=== PATIENT | female | born 1975 | race Caucasian/White ===

== ENCOUNTER 2016-10-03 14:33 | Emergency (ER) | payer SELFPAY ==
[~2016-10-03] VITALS: Ht 165.1 cm; Wt 81.5 kg
[~2016-10-03 14:33] MED LIST: BACT800T5 PO; PERC5TAB12 PO
[2016-10-03 14:34] VITALS: BP 134/84; PULSE 131; RESP 19; TEMP 98.2; O2SAT 98
--- NOTE | 2016-10-03 15:08 | PD ---
HPI Chief Complaint: Fall Time Seen by Provider: 15:07 Travel History International Travel<30 days: No Contact w/Intl Traveler<30days: No Traveled to known affect area: No History of Present Illness HPI 41-year-old female presents to the emergency Department with complaint of coccyx pain and low back pain after slipping and falling in the bathtub yesterday and landing on her butt. She denies hitting her head or loss of consciousness. Denies neck pain. Pain radiates down right leg at times. Denies encopresis, incontinence, saddle anesthesias. Denies change in urine or stool. Denies hematuria or hematochezia. Denies paresthesias, loss of sensation, decreased range of motion, decreased strength to bilateral lower extremities. Pain is worse with palpation, sitting, walking. Patient is ambulatory. Denies fever, chills, nausea, vomiting. Denies IV drug use. Denies cancer. Has tried taking ibuprofen and Tylenol with minimal relief of symptoms. Allergies to penicillin. Denies significant past medical history. Denies anticoagulants. No other modifying factors or associated signs and symptoms. [facility] Past Medical History Medical History: Denies Significant Hx : 4 Para: 4 Miscarriage: 0 : 0 Past Surgical History Cholecystectomy: Yes Social History Alcohol Use: No Tobacco Use: Yes (1 PACK A DAY FOR 20 YEARS) Substance Use: No Allergies-Medications (Allergen,Severity, Reaction): Coded Allergies: Penicillin (Verified Allergy, Severe, SOB, 10/03/16) Reported Meds & Prescriptions Reported Meds & Active Scripts Active Robaxin (Methocarbamol) 500 Mg Tab 500 Mg PO QID PRN Ibuprofen 800 Mg Tab 800 Mg PO Q6HR PRN Review of Systems Except as stated in HPI: all other systems reviewed are Neg Physical Exam Narrative GENERAL: Well-nourished, well-developed female patient, in no acute distress SKIN: Warm and dry. HEAD: Atraumatic. Normocephalic. EYES: Pupils equal and round. No scleral icterus. No injection or drainage. ENT: Mucosa pink and moist. Airway patent. NECK: Trachea midline. CARDIOVASCULAR: Regular rate. RESPIRATORY: No accessory muscle use. GASTROINTESTINAL: Rounded. MUSCULOSKELETAL: Bilateral lower extremities supple and non-tense with 2+ pedal pulses and sensory intact; with full range of motion and 5/5 strength. Active dorsiflexion and extension of bilateral feet. Ambulatory with normal gait. Sitting up in bed at 90. No obvious deformities. No clubbing. No cyanosis. No edema. BACK: Midline point tenderness on palpation of the coccyx area; without ecchymosis. Midline point tenderness on palpation of the lumbar. No midline point tenderness on palpation of the thoracic spine. Tenderness on palpation of left iliosacral area. No obvious deformities. NEUROLOGICAL: Awake and alert. Oriented 3. No obvious cranial nerve deficits. Motor grossly within normal limits. Normal speech. Moves all extremities. 5/5 strength to all extremities. Sensory intact. PSYCHIATRIC: Appropriate mood and affect; insight and judgment normal. Data Data Last Documented VS Vital Signs Date Time Temp Pulse Resp B/P Pulse Ox O2 Delivery O2 Flow Rate FiO2 10/03/16 14:34 98.2 131 19 134/84 98 Orders Ketorolac Inj (Toradol Inj) (10/03/16 15:15) Orphenadrine Inj (Norflex Inj) (10/03/16 15:15) Sacrum And Coccyx (10/03/16 ) Spine, Lumbar - Ltd (Ap & Lat) (10/03/16 15:13) [facility] Medical Decision Making Medical Screen Exam Complete: Yes Emergency Medical Condition: Yes Medical Record Reviewed: Yes Differential Diagnosis Coccyx fracture, low back strain, contusion, fall Narrative Course 41-year-old female with low back injury after a mechanical slip and fall yesterday. Denies hitting her head or loss of consciousness. Denies neck pain. Heart rate recheck on physical exam is approximately 90 bpm. Toradol and Norflex administered in the ER. Coccyx, sacrum, lumbar spine x-ray ordered. 1604: Coccyx and sacrum, and lumbar x-ray with no acute findings. Ibuprofen or Robaxin prescribed for home. Patient is medically cleared and stable for discharge. Discussed reasons to return to the emergency department. Instructed patient to follow up with primary care provider. Patient agrees with treatment plan. The patients vital signs are stable and the patient is stable for outpatient follow-up and treatment. Patient discharged home, stable and in no acute distress. Diagnosis Primary Impression: Fall Qualified Code: W19.XXXA - Fall, initial encounter Additional Impressions: Injury of coccyx Qualified Code: S39.92XA - Injury of coccyx, initial encounter Injury of low back Qualified Code: S39.92XA - Injury of low back, initial encounter Referrals: Primary Care Physician Patient Instructions: Acute Low Back Pain (ED), Coccyx Injury (ED), Fall Prevention (ED), General Instructions, Low Back Strain (ED), Lower Back Exercises (ED) Departure Forms: Tests/Procedures, Work Release Enter return to work date: Oct 06, 2016 Additional Instructions: Tylenol or ibuprofen as directed and as needed for pain Robaxin as prescribed and as needed for muscle spasms Heating pad and/or ice to affected area to reduce pain Avoid aggravating activities; increase activity as tolerated Follow-up with primary care provider Return to emergency department immediately with worsening of symptoms Med/Other Pt SpecificInfo: Prescription(s) given Scripts Methocarbamol (Robaxin)500 Mg [id number] Mg PO QID PRN (MUSCLE SPASM) #30 TAB Ref 0 Prov:Izabela Anders 10/03/16 Ibuprofen 800 Mg [id number] Mg PO Q6HR PRN (PAIN) #30 TAB Ref 0 Prov:Izabela Anders 10/03/16 Disposition: 01 DISCHARGE HOME Condition: Stable Izabela Anders Oct 03, 2016 15:07
[2016-10-03] MEDS ORDERED: KETOROLAC TROMETHAMINE 60 MG/2 ML (IM) VIAL IM ONE (15:15)
[2016-10-03] MEDS ORDERED: ORPHENADRINE INJ 60 MG/2 ML AMP IM ONE (15:15)
[2016-10-03] MEDS ORDERED: IBUP800T23 PO (15:17)
[2016-10-03] MEDS ORDERED: ROBA500T PO (15:17)
--- NOTE | 2016-10-03 15:34 | RADRPT ---
EXAM DATE/TIME: 10/03/2016 15:21 [facility] COMPARISON: No previous studies available for comparison. INDICATIONS : Coccyx pain after fall in bathtub. MEDICAL HISTORY : None. SURGICAL HISTORY : None. ENCOUNTER: Initial ACUITY: 2 days PAIN SCORE: 7/10 LOCATION: Bilateral coccyx. FINDINGS: Two-view examination of the sacrum and coccyx demonstrates no evidence of fracture or malalignment. The sacral ala and foramina appear symmetric and intact. The coccyx appears unremarkable. The preve rtebral soft tissues are within normal limits. CONCLUSION: Unremarkable examination of the sacrum and coccyx. Campos Burton MD on October 03, 2016 at 15:32 Board Certified Radiologist. This report was verified electronically.
--- NOTE | 2016-10-03 15:49 | RADRPT ---
EXAM DATE/TIME: 10/03/2016 15:28 [facility] COMPARISON: No previous studies available for comparison. INDICATIONS : Lower back pain after fall in bathtub. MEDICAL HISTORY : None. SURGICAL HISTORY : None. ENCOUNTER: Initial ACUITY: 2 days PAIN SCORE: 7/10 LOCATION: Bilateral lower back. FINDINGS: Two view examination was performed. There are five non-rib bearing vertebral bodies. The vertebral bodies are in normal alignment without evidence of subluxation or scoliosis. Degenerative disc diseas e with marked narrowing or vascular side of L4-5 disc space and mild narrowing of L5-S1 as well as L3 -4. Anterior marginal spurring L4-5 noted. Probable facet arthritic changes L4-S1.. The pedicles are intact. Bony mineralization is normal. No fracture is identified. CONCLUSION: Degenerative disc disease and degenerative findings as described. No acute bony injury. Campos Burton MD on October 03, 2016 at 15:47 Board Certified Radiologist. This report was verified electronically.
== END 2016-10-03 16:22 | disposition home or self-care (01) ==
LOC: NEPB 14:33
DX: S39.92XA Unspecified injury of lower back, initial encounter (principal); F17.210 Nicotine dependence, cigarettes, uncomplicated; W18.2XXA Fall in (into) shower or empty bathtub, initial encounter; Y93.E1 Activity, personal bathing and showering; Y92.002 Bathroom of unspecified non-institutional (private) residence as the place of occurrence of the external cause; Y99.8 Other external cause status
CPT/HCPCS: 72100; 72220; 96372; 99283; J1885; J2360